=== PATIENT | female | born 1950 | race Caucasian/White ===

== ENCOUNTER 2017-01-07 11:43 | Inpatient (IN) | payer MEDICARE ==
[2017-01-07 12:41] LABS: Hematocrit 39 % (35-47); Hemoglobin 13.6 g/dl (12.0-16.0); Mean Corpuscular HGB Conc 35 g/dl (31-36); Mean Corpuscular Hemoglobin 31 pg (27-31); Mean Corpuscular Volume 89 fL (80-97); Mean Platelet Volume 9 um3 (7.4-10.4); Red Blood Count 4.41 10^6/ul (4.0-5.4); Red Cell Distribution Width 14 % (10.5-15); White Blood Count 11.6 10^3/ul (3.5-10.8)
--- NOTE | 2017-01-07 12:57 | RAD ---
HISTORY: Abdominal pain COMPARISONS: None VIEWS: 1: frontal portable view of the chest at 12:36 PM FINDINGS: LINES AND TUBES: None. CARDIOMEDIASTINAL SILHOUETTE: The cardiomediastinal silhouette is normal for portable technique. PLEURA: The costophrenic angles are sharp. No pleural abnormalities are noted. LUNG PARENCHYMA: The lungs are clear. ABDOMEN: The upper abdomen is clear. There is no subphrenic gas. BONES AND SOFT TISSUES: No bone or soft tissue abnormalities are noted. IMPRESSION: NO ACTIVE CARDIOPULMONARY DISEASE.
[2017-01-07 12:59] LABS: ALT 25 U/L (7-52); AST 27 U/L (13-39); Albumin 4.6 g/dL (3.2-5.2); Alkaline Phosphatase 71 U/L (34-104); Amylase 16 U/L (29-103); Anion Gap 8 mmol/L (2-11); BUN/Creatinine Ratio 6.5 (8-20); Blood Urea Nitrogen 6 mg/dL (6-24); C Reactive Protein 24.49 mg/L (< 5.00); CO2 Carbon Dioxide 24 mmol/L (22-32); Calcium 9.6 mg/dL (8.6-10.3); Chloride 98 mmol/L (101-111); Creatine Kinase 517 U/L (10-223); EGFR African American 78.8 (>60); EGFR Non-African American 61.3 (>60); Globulin 2.7 g/dL (2-4); Glucose 244 mg/dL (70-100); Lipase 25 U/L (11.0-82.0); Magnesium 1.9 mg/dL (1.9-2.7); Potassium 3.9 mmol/L (3.5-5.0); Sodium 130 mmol/L (133-145); Total Protein 7.3 g/dL (6.4-8.9)
[2017-01-07 13:22] LABS: Acetaminophen < 15 mcg/mL; Alcohol < 10 mg/dL (<10); Salicylate < 2.50 mg/dL (<30)
[2017-01-07] MEDS ORDERED: Iodixanol* (CONTRAST) 320 MG/ML 100 ML SDV IV ONE ×2 (13:31→13:35)
[2017-01-07 13:44] LABS: TSH (Thyroid Stimulating Horm) 2.78 mcIU/mL (0.34-5.60)
[2017-01-07 14:06] LABS: Urine Bacteria Absent (Absent); Urine Bilirubin Negative (Negative); Urine Glucose 3+(>=500 mg/dL) (Negative); Urine Nitrite Negative (Negative)
[2017-01-07 14:19] LABS: Benzodiazepine Urine Screen None Detected (None Detect)
--- NOTE | 2017-01-07 14:50 | RAD ---
INDICATION: Periumbilical pain COMPARISON: None TECHNIQUE: Axial source images were obtained from the hemidiaphragms to the symphysis pubis following administration of oral and intravenous contrast. 61 mL Visipaque 320 was utilized. Coronal and sagittal reconstructed images were acquired. Lung bases: The lung bases are clear. Liver: The liver is mildly enlarged with findings of hepatic steatosis. There are no masses. There is no ductal dilatation. Gallbladder: Cholecystectomy. Spleen: The spleen is normal in size. There are no masses. Pancreas: There is no focal pancreatic mass or ductal dilatation. Adrenal glands: There is no evidence of adrenal mass. Kidneys: The kidneys are normal in size and position. There are prompt nephrograms and there is prompt excretion bilaterally. There are no renal parenchymal masses. There is no evidence of nephrolithiasis. Adenopathy: There is no evidence of adenopathy by size criteria. Fluid collections: There are no free or localized fluid collections. Vessels:There are no significant atherosclerotic changes involving the aorta. There is no focal aneurysm. The iliac vessels are normal in caliber. The IVC appears normal. GI tract: There are proximal measuring up to 3.7 cm. The remainder the small bowel bowel is normal in caliber. These findings could be related to a localized ileus. The colon to include the appendix appears normal. Pelvic organs: The uterus and adnexa appear normal Bladder: There are no bladder masses. Abdominal and pelvic soft tissues: The extraperitoneal abdominal and pelvic soft tissues appear normal.. Osseous structures: There is degenerative disease about L4-L5 with a presumed small calcified herniated disc fragment. No additional significant bony findings. Other: There is a tiny metallic density clip artifact in the mesenteric fat of the left mid abdomen. IMPRESSION: THERE ARE SEVERAL PROXIMAL JEJUNAL LOOPS WHICH ARE OUT OF PROPORTION TO THE REMAINDER OF THE SMALL BOWEL. THIS COULD BE SECONDARY TO A LOCALIZED ILEUS. SUGGEST A FOLLOW-UP ABDOMINAL SERIES..
[2017-01-07] MEDS ORDERED: Morphine INJ* 4 MG/ML 1 ML CARPUJECT IV ONE (15:45)
[2017-01-07] MEDS ORDERED: LORazepam INJ* 2 MG/ML 1 ML VIAL IV PUSH ONE (18:34)
--- NOTE | 2017-01-07 22:42 | CONS ---
CONSULTATION REPORT: DATE OF CONSULT: 01/07/17 SERVICE REQUESTING CONSULTATION: Emergency room. PRIMARY CARE PROVIDER: HEALTHCARE PROXY: The patient does not want to identify healthcare proxy. CODE STATUS: Full. SOURCE OF INFORMATION: History was obtained from the interview with the patient and discussion with ED providers. REASON FOR CONSULT: Abdominal pain, tremor. HISTORY OF PRESENT ILLNESS: This is a 66-year-old female with past medical history of depression, bipolar disorder, hyperlipidemia, COPD, type 2 diabetes, reports 1- year history of abdominal pain that comes every day and lasts for 12 hours at a time, but is generally manageable. She reports that 6 days prior, she had sudden worsening of her abdominal pain that felt like squeezing pain that was rated as 10/10. She reports that she has been to [facility] and has since been discharged. It is not associated with nausea, vomiting, fevers, chills, melena, bright blood per rectum. She continued to have flatus and her last bowel movement was yesterday. She notes that nothing relieved the pain except for IV Ativan. She notes that she has been eating less not because of nausea, but because she has developed ticks in both her mouth that causes a squeezing sensation in her mouth as well as her arms that causes them to be held above her head and shake them. She experiences no pain in any of her arms or other muscles. She notes that she has had similar problems in the past with pain causing her to have abnormal muscle movements. She denies any recent stressors in her life other than the continued abdominal pain. PAST MEDICAL HISTORY: Includes type 2 diabetes; depression; hyperlipidemia; COPD; bipolar disorder; history of cholecystectomy, which she reports was not performed secondary to the abdominal pain. HOME MEDICATIONS: 1. Ziprasidone 80 mg daily. 2. Albuterol 2 puffs inhaled every 6 hours as needed. 3. Acetaminophen 500 mg every 8 hours as needed for pain or fever. 4. Tiotropium 2 caps inhaled daily. 5. Metformin 500 mg daily. 6. Januvia 50 mg daily. 7. Cymbalta 30 mg daily. 8. Atorvastatin 20 mg daily p.r.n. ALLERGIES: DESVENLAFAXINE, LITHIUM, and VALPROIC ACID. FAMILY HISTORY: Father with CAD. SOCIAL HISTORY: Smoke 1 pack per day for 13 years. History of alcohol use, she reports heavy in the past, but none now. Denies illicits. Lives in [place]. Has a home, is not undomiciled. REVIEW OF SYSTEMS: As per HPI. Otherwise, all other systems negative. PHYSICAL EXAM: Vitals in the emergency room: 162/80, heart rate of 100, respiratory rate of 18, she is 95% on room air, T-max 97.3. The patient is lying approximately 45 degrees in bed. She is interactive, pleasant, in no apparent distress. She does have spasms where she starts throwing her hands above the air and shaking them, to be described more thoroughly in the neurologic exam below. Her oropharynx is clear. She has moist mucous membranes. Sclerae are anicteric. She has non-elevated JVD. No supraclavicular or cervical lymphadenopathy. She has regular rate and rhythm. No murmurs, rubs, or gallops. Her lungs are clear to auscultation. Her abdomen is soft to deep palpation throughout. Positive bowel sounds. Nondistended. No rebound or guarding. Her extremities are warm and well perfused without clubbing, cyanosis, or edema. Her skin is intact without breakdown. Neurologically, she is alert and oriented x3. Her cranial nerves II through XII are intact. Her muscles have normal tone. When her arms are held above her head, she keeps them there and starts shaking. It is notable that her strength is 5/5 throughout and her sensation is intact throughout and it is notable that the shaking of her hands above her head and the jaw clenching is immediately ceased by distraction such as asking her to perform serial 7's or spelling the world backwards. Memory exam: She had 3/3 word recall at 2 minutes and would also distract her from the abnormal muscle movements as well as the jaw clenching. At no time does she have difficulty answering the questions secondary to jaw clenching, it immediately ceases. She does not favor one side with abnormal movements and is unable at any time when I lift her hands above her head to let them loose and fall, has abnormal shaking above her head immediately. PERTINENT LABORATORY DATA: Negative urine toxicology. White blood cell count is 11.6, 79% neutrophils. Sodium is 130, chloride 98, BUN 6, creatinine 0.92, glucose 244, lactic acid 1.7. Total CK is 517. CRP is 24. Beta HCG 5.9. Amylase 16, lipase 25. Urine positive for leuk esterase, squamous epithelial cells, and urine specific gravity is 1.000. PERTINENT IMAGING TESTS: CT abdomen and pelvis with contrast: There are several proximal jejunal loops which are out of proportion to the remainder of the small bowel. ASSESSMENT AND PLAN: This is a 66-year-old female presenting to the hospital with abdominal pain, has been chronic over a year, worse over the last 6 days, associated now with abnormal arm movements. 1. Abdominal pain. CT abdomen and pelvis with dilated loops of jejunum of unknown clinical significance. She has had no nausea or vomiting. She is able to tolerate food and liquids. She notes that is only limited by jaw clenching. She has had no change in her bowel movements. Her clinical exam is completely benign to very deep palpation. I suspect this is chronic etiology that may have some conversion component. I do not think she warrants inpatient hospital stay at this point for continued management of her abdominal pain. 2. Abnormal movements. Again, I believe kind of some conversion component to them. They are completely suppressed by distraction. She reports that they are only relieved by IV Ativan. There may be drug seeking behavior as well. I am not against giving her IV Ativan to suppress the movements at this time, allowing her rest and then return home. I do think she warrants a psychiatric consultation as per ED report, she showed up reporting she was suicidal. At this point, she denies any suicidal ideation. Thank you for this interesting consultation. I discussed my findings with ED provider, Dr. Joseph. [id number]/CPS #: [id number] BILL
--- NOTE | 2017-01-08 01:52 | ED ---
Sobeida Grimes Edward, scribed for Peggy Joseph MD on 01/07/17 at 1215 . Abdominal Pain/Female - HPI Summary HPI Summary: 66 y/o female presents to the ED c/o severe, intermittent pain in her ABD. The pain is described as a squeezing pain. The pt's pain is chronic but it has been worse in the past 6 days. Denies N/V, CP, SOB. Associated sx: chronic shakes for 1 year of her R arm and shakes in her face that have been worse in the past 6 days (tick), decreased appetite, sleep disturbance, SI. The pt is accompanied by her daughter in law. PCP Candice Hooks. PMHx COPD. Pt has been admitted 2 times recently at [place]. Pt has only been taking Metformin of all of her listed medications, per pt's daughter in law. Pt states she does not want to go to [facility] anymore because they make fun of her there. Pt states she doesn't want to live, if she has to live like this. Denies suicidal plan. Pt with hx bipolar, schizoaffective disorder. - History of Current Complaint Chief Complaint: [facility]entalHealth Stated Complaint: ABD PAIN Time Seen by Provider: 01/07/17 12:13 Hx Obtained From: Patient Onset/Duration: Gradual Onset, Lasting Weeks, Worse Since - 6 days ago Timing: Intermittent Episode Lasting - minutes to hours Severity Initially: Moderate Severity Currently: Severe Pain Intensity: 10 Pain Scale Used: 0-10 Numeric Location: Diffuse Radiates: No Character: Other: - squeezing Aggravating Factor(s): Nothing Alleviating Factor(s): Nothing Associated Signs and Symptoms: Positive: Other: - shakes, decreased appetite, sleep disturbance, SI. Negative: Nausea, Vomiting Allergies/Adverse Reactions: Allergies Allergy/AdvReac Type Severity Reaction Status Date / Time Desvenlafaxine [From Pristiq] Allergy Unknown Verified 01/07/17 12:02 Reaction Details [place] Allergy Tachycardia Verified 01/07/17 12:02 Valproic Acid [From Depakote] Allergy Congestion Verified 01/07/17 12:02 Home Medications: Home Medications Acetaminophen [Acetaminophen Extra Stren] 500 mg PO Q8HR PRN 01/07/17 [History Confirmed 01/07/17] Albuterol HFA INHALER* [Ventolin HFA Inhaler*] 2 puff INH Q6H PRN 01/07/17 [ History Confirmed 01/07/17] Atorvastatin* [Lipitor*] 20 mg PO DAILY 01/07/17 [History Confirmed 01/07/17] DULoxetine DR CAP* [Cymbalta CAP*] 30 mg PO DAILY 01/07/17 [History Confirmed ] Sitagliptin (NF) [Januvia (NF)] 50 mg PO DAILY 01/07/17 [History Confirmed 01/07] Tiotropium CAP.INH* [Spiriva CAP.INH*] 2 cap.inh INH DAILY 01/07/17 [History Confirmed 01/07/17] Ziprasidone CAP* [Geodon CAP*] 80 mg PO DAILY 01/07/17 [History Confirmed ] metFORMIN* [Glucophage 500 MG TAB *] 500 mg PO DAILY 01/07/17 [History Confirmed 01/07/17] PMH/Surg Hx/FS Hx/Imm Hx Previously Healthy: No Respiratory History: Reports: Hx Chronic Obstructive Pulmonary Disease (COPD) Psychiatric History: Reports: Hx Depression, Hx Bipolar Disorder, Other Psychiatric Issues/Disorders - Schizo affective Infectious Disease History: No Infectious Disease History: Denies: Traveled Outside the [place] in Last 30 Days - Family History Known Family History: Positive: Other - Depression - Social History Occupation: Disabled Alcohol Use: None Hx Substance Use: No Substance Use Type: Reports: None Hx Tobacco Use: Yes Smoking Status (MU): Heavy Every Day Tobacco Smoker Review of Systems Constitutional: Negative Eyes: Negative ENT: Negative Cardiovascular: Negative Respiratory: Negative Positive: Abdominal Pain Genitourinary: Negative Musculoskeletal: Negative Skin: Negative Neurological: Other - shakes in R arm and face Psychological: Other - decreased appetite, sleep disturbance, SI All Other Systems Reviewed And Are Negative: Yes Physical Exam - Summary Physical Exam Summary: Appearance: Chronically ill appearing, moaning in pain distress, obese Skin: Warm, color reflects adequate perfusion Head: Normal Head/Face Eyes: Conjunctiva clear ENT: Normal Neck: Supple Respiratory: Lungs clear, Normal breath sounds, no respiratory distress Cardio: RRR, No murmur, pulses normal, brisk capillary refill Abdomen: soft and mild, diffuse abdominal pain, no guarding, no rebound. No masses, no organomegaly. Bowel sounds: present Musculoskeletal: Strength Intact/ ROM intact Neuro: Alert, muscle tone normal, facial symmetry, speech normal, sensory/motor intact. Pt has repetitive up and down movement of R arm that she can stop when she holds onto her bed rail. Back and forth shaking of head that comes on in pain and can stop when I hold my hand on her forehead. Pt states these are involuntary due to pain. Pt also taps left foot in pain. Triage Information Reviewed: Yes Vital Signs On Initial Exam: Initial Vitals Temp Pulse Resp BP Pulse Ox 97.3 F 109 19 172/93 95 01/07/17 11:44 01/07/17 11:44 01/07/17 11:44 01/07/17 11:44 01/07/17 11:44 Vital Signs Reviewed: Yes - Liza Coma Scale Coma Scale Total: 15 Diagnostics - Vital Signs Vital Signs Temp Pulse Resp BP Pulse Ox 01/07/17 11:44 97.3 F 109 19 172/93 95 - Laboratory Lab Results: Lab Results 01/07/17 01/07/17 01/07/17 Range/Units 12:24 12:24 12:24 WBC 11.6 H (3.5-10.8) 10^3/ul RBC 4.41 (4.0-5.4) 10^6/ul Hgb 13.6 (12.0-16.0) g/dl Hct 39 (35-47) % MCV 89 (80-97) fL MCH 31 (27-31) pg MCHC 35 (31-36) g/dl RDW 14 (10.5-15) % Plt Count 240 (150-450) 10^3/ul MPV 9 (7.4-10.4) um3 Neut % (Auto) 79.8 (38-83) % Lymph % (Auto) 12.3 L (25-47) % [place] % (Auto) 6.1 (1-9) % Eos % (Auto) 0.1 (0-6) % Baso % (Auto) 1.7 (0-2) % Absolute Neuts (auto) 9.2 H (1.5-7.7) 10^3/ul Absolute Lymphs (auto) 1.4 (1.0-4.8) 10^3/ul Absolute Monos (auto) 0.7 (0-0.8) 10^3/ul Absolute Eos (auto) 0 (0-0.6) 10^3/ul Absolute Basos (auto) 0.2 (0-0.2) 10^3/ul Absolute Nucleated RBC 0 10^3/ul Nucleated RBC % 0 INR (Anticoag Therapy) 0.97 (0.89-1.11) Sodium 130 L (133-145) mmol/L Potassium 3.9 (3.5-5.0) mmol/L Chloride 98 L (101-111) mmol/L Carbon Dioxide 24 (22-32) mmol/L Anion Gap 8 (2-11) mmol/L BUN 6 (6-24) mg/dL Creatinine 0.92 (0.51-0.95) mg/dL Est GFR ( Amer) 78.8 (>60) Est GFR (Non-Af Amer) 61.3 (>60) BUN/Creatinine Ratio 6.5 L (8-20) Glucose 244 H (70-100) mg/dL Lactic Acid (0.5-2.0) mmol/L Calcium 9.6 (8.6-10.3) mg/dL Magnesium 1.9 (1.9-2.7) mg/dL Total Bilirubin 0.80 (0.2-1.0) mg/dL AST 27 (13-39) U/L ALT 25 (7-52) U/L Alkaline Phosphatase 71 (34-104) U/L Total Creatine Kinase 517 H (10-223) U/L Troponin I 0.00 (<0.04) ng/mL C-Reactive Protein 24.49 H (< 5.00) mg/L Total Protein 7.3 (6.4-8.9) g/dL Albumin 4.6 (3.2-5.2) g/dL Globulin 2.7 (2-4) g/dL Albumin/Globulin Ratio 1.7 (1-3) Amylase 16 L (29-103) U/L Lipase 25 (11.0-82.0) U/L TSH 2.78 (0.34-5.60) mcIU/mL Beta HCG, Quant 5.99 mIU/mL Urine Color Urine Appearance Urine pH (5-9) Ur Specific [place] (1.010-1.030) Urine Protein (Negative) Urine Ketones (Negative) Urine Blood (Negative) Urine Nitrate (Negative) Urine Bilirubin (Negative) Urine Urobilinogen (Negative) Ur Leukocyte Esterase (Negative) Urine WBC (Auto) (Absent) Urine RBC (Auto) (Absent) Ur Squamous Epith Cells (Absent) Urine Bacteria (Absent) Urine Glucose (Negative) Salicylates < 2.50 (<30) mg/dL Urine Opiates Screen (None Detect) Acetaminophen < 15 mcg/mL Ur Barbiturates Screen (None Detect) Ur Phencyclidine Scrn (None Detect) Ur Amphetamines Screen (None Detect) U Benzodiazepines Scrn (None Detect) Urine Cocaine Screen (None Detect) U Cannabinoids Screen (None Detect) Serum Alcohol < 10 (<10) mg/dL 01/07/17 01/07/17 01/07/17 Range/Units 12:24 13:46 13:46 WBC (3.5-10.8) 10^3/ul RBC (4.0-5.4) 10^6/ul Hgb (12.0-16.0) g/dl Hct (35-47) % MCV (80-97) fL MCH (27-31) pg MCHC (31-36) g/dl RDW (10.5-15) % Plt Count (150-450) 10^3/ul MPV (7.4-10.4) um3 Neut % (Auto) (38-83) % Lymph % (Auto) (25-47) % [place] % (Auto) (1-9) % Eos % (Auto) (0-6) % Baso % (Auto) (0-2) % Absolute Neuts (auto) (1.5-7.7) 10^3/ul Absolute Lymphs (auto) (1.0-4.8) 10^3/ul Absolute Monos (auto) (0-0.8) 10^3/ul Absolute Eos (auto) (0-0.6) 10^3/ul Absolute Basos (auto) (0-0.2) 10^3/ul Absolute Nucleated RBC 10^3/ul Nucleated RBC % INR (Anticoag Therapy) (0.89-1.11) Sodium (133-145) mmol/L Potassium (3.5-5.0) mmol/L Chloride (101-111) mmol/L Carbon Dioxide (22-32) mmol/L Anion Gap (2-11) mmol/L BUN (6-24) mg/dL Creatinine (0.51-0.95) mg/dL Est GFR ( Amer) (>60) Est GFR (Non-Af Amer) (>60) BUN/Creatinine Ratio (8-20) Glucose (70-100) mg/dL Lactic Acid 1.7 (0.5-2.0) mmol/L Calcium (8.6-10.3) mg/dL Magnesium (1.9-2.7) mg/dL Total Bilirubin (0.2-1.0) mg/dL AST (13-39) U/L ALT (7-52) U/L Alkaline Phosphatase (34-104) U/L Total Creatine Kinase (10-223) U/L Troponin I (<0.04) ng/mL C-Reactive Protein (< 5.00) mg/L Total Protein (6.4-8.9) g/dL Albumin (3.2-5.2) g/dL Globulin (2-4) g/dL Albumin/Globulin Ratio (1-3) Amylase (29-103) U/L Lipase (11.0-82.0) U/L TSH (0.34-5.60) mcIU/mL Beta HCG, Quant mIU/mL Urine Color Yellow Urine Appearance Clear Urine pH 6.0 (5-9) Ur Specific [place] 1.005 L (1.010-1.030) Urine Protein Negative (Negative) Urine Ketones Negative (Negative) Urine Blood Negative (Negative) Urine Nitrate Negative (Negative) Urine Bilirubin Negative (Negative) Urine Urobilinogen Negative (Negative) Ur Leukocyte Esterase Trace H (Negative) Urine WBC (Auto) Trace(0-5/hpf) (Absent) Urine RBC (Auto) Trace(0-2/hpf) (Absent) Ur Squamous Epith Cells Present H (Absent) Urine Bacteria Absent (Absent) Urine Glucose 3+(>=500 mg/dl) H (Negative) Salicylates (<30) mg/dL Urine Opiates Screen None detected (None Detect) Acetaminophen mcg/mL Ur Barbiturates Screen None detected (None Detect) Ur Phencyclidine Scrn None detected (None Detect) Ur Amphetamines Screen None detected (None Detect) U Benzodiazepines Scrn None detected (None Detect) Urine Cocaine Screen None detected (None Detect) U Cannabinoids Screen None detected (None Detect) Serum Alcohol (<10) mg/dL 01/07/17 Range/Units 17:02 WBC (3.5-10.8) 10^3/ul RBC (4.0-5.4) 10^6/ul Hgb (12.0-16.0) g/dl Hct (35-47) % MCV (80-97) fL MCH (27-31) pg MCHC (31-36) g/dl RDW (10.5-15) % Plt Count (150-450) 10^3/ul MPV (7.4-10.4) um3 Neut % (Auto) (38-83) % Lymph % (Auto) (25-47) % [place] % (Auto) (1-9) % Eos % (Auto) (0-6) % Baso % (Auto) (0-2) % Absolute Neuts (auto) (1.5-7.7) 10^3/ul Absolute Lymphs (auto) (1.0-4.8) 10^3/ul Absolute Monos (auto) (0-0.8) 10^3/ul Absolute Eos (auto) (0-0.6) 10^3/ul Absolute Basos (auto) (0-0.2) 10^3/ul Absolute Nucleated RBC 10^3/ul Nucleated RBC % INR (Anticoag Therapy) (0.89-1.11) Sodium (133-145) mmol/L Potassium (3.5-5.0) mmol/L Chloride (101-111) mmol/L Carbon Dioxide (22-32) mmol/L Anion Gap (2-11) mmol/L BUN (6-24) mg/dL Creatinine (0.51-0.95) mg/dL Est GFR ( Amer) (>60) Est GFR (Non-Af Amer) (>60) BUN/Creatinine Ratio (8-20) Glucose (70-100) mg/dL Lactic Acid 1.3 (0.5-2.0) mmol/L Calcium (8.6-10.3) mg/dL Magnesium (1.9-2.7) mg/dL Total Bilirubin (0.2-1.0) mg/dL AST (13-39) U/L ALT (7-52) U/L Alkaline Phosphatase (34-104) U/L Total Creatine Kinase (10-223) U/L Troponin I (<0.04) ng/mL C-Reactive Protein (< 5.00) mg/L Total Protein (6.4-8.9) g/dL Albumin (3.2-5.2) g/dL Globulin (2-4) g/dL Albumin/Globulin Ratio (1-3) Amylase (29-103) U/L Lipase (11.0-82.0) U/L TSH (0.34-5.60) mcIU/mL Beta HCG, Quant mIU/mL Urine Color Urine Appearance Urine pH (5-9) Ur Specific [place] (1.010-1.030) Urine Protein (Negative) Urine Ketones (Negative) Urine Blood (Negative) Urine Nitrate (Negative) Urine Bilirubin (Negative) Urine Urobilinogen (Negative) Ur Leukocyte Esterase (Negative) Urine WBC (Auto) (Absent) Urine RBC (Auto) (Absent) Ur Squamous Epith Cells (Absent) Urine Bacteria (Absent) Urine Glucose (Negative) Salicylates (<30) mg/dL Urine Opiates Screen (None Detect) Acetaminophen mcg/mL Ur Barbiturates Screen (None Detect) Ur Phencyclidine Scrn (None Detect) Ur Amphetamines Screen (None Detect) U Benzodiazepines Scrn (None Detect) Urine Cocaine Screen (None Detect) U Cannabinoids Screen (None Detect) Serum Alcohol (<10) mg/dL Result Diagrams: 01/07/17 12:24 01/07/17 12:24 Lab Statement: Any lab studies that have been ordered have been reviewed, and results considered in the medical decision making process. - Radiology CXR Xray Interpretation: No Acute Changes - NO ACTIVE CARDIOPULMONARY DISEASE Radiology Interpretation Completed By: Radiologist - CT ABD/PEL CT CT Interpretation: Positive (See Comments) - THERE ARE SEVERAL PROXIMAL JEJUNAL LOOPS WHICH ARE OUT OF PROPORTION TO THE REMAINDER OF THE SMALL BOWEL. THIS COULD BE SECONDARY TO A LOCALIZED ILEUS. SUGGEST A FOLLOW-UP ABDOMINAL SERIES.. CT Interpretation Completed By: Radiologist - Additional Comments Diagnostic Additional Comments: EKG - 12:26 - SR @ 102 BPM. NORMAL AV, IV and QTC. NORMAL AXIS. NO PRIOR EKG TO COMPARE Abdominal Pain Fem Course/Dx - Course Course Of Treatment: 66 y/o female presents to the ED c/o severe, intermittent pain in her ABD. The pain is described as a squeezing pain. The pt's pain is chronic but it has been worse in the past 6 days. Denies N/V, CP, SOB. Associated sx: chronic shakes for 1 year of her R arm and shakes in her face that have been worse in the past 6 days (tick), decreased appetite, sleep disturbance, SI. The pt is accompanied by her daughter in law. PCP Candice Hooks. PMHx COPD. Pt has been admitted 2 times recently at [facility]. Pt has only been taking Metformin, per pt's daughter in law. CXR SHOWS NO ACTIVE CARDIOPULMONARY DISEASE. EKG - 12:26 - SR @ 102 BPM. NORMAL AV, IV and QTC. NORMAL AXIS. NO PRIOR EKG TO COMPARE. ABD/PEL CT SHOWS THERE ARE SEVERAL PROXIMAL JEJUNAL LOOPS WHICH ARE OUT OF PROPORTION TO THE REMAINDER OF THE SMALL BOWEL. THIS COULD BE SECONDARY TO A LOCALIZED ILEUS. SUGGEST A FOLLOW-UP ABDOMINAL SERIES. Spoke with Dr. Irizarry at 16:06. Pt is medically cleared for MHU evaluation at 16:55. Pt will be signed out to Dr. De Leon pending U eval. - Diagnoses Differential Diagnosis: Positive: Bowel Obstruction, Constipation, Diverticulitis, Irritable Bowel Syndrome, Other - ileus Provider Diagnoses: Abdominal pain, Suicidal ideation, Bipolar disorder, Ileus - Provider Notifications Discussed Care Of Patient With: Jt Irizarry Time Discussed With Above Provider: 15:45 Instructed by Provider To: MD Will See In ED Discharge - Discharge Plan Condition: Stable Disposition: OTHER Discharge Disposition Comment: Pt will be signed out to Dr. De Leon pending U eval 01/08/17 0130am Referrals: Non Staff,Doctor [Primary Care Provider] - The documentation as recorded by the Sobeida hair Edward accurately reflects the service I personally performed and the decisions made by , Peggy Joseph MD.
[2017-01-08] MEDS: ARIPiprazole TAB* 2 MG PO ONE (10:26)
[2017-01-08] MEDS ORDERED: Albuterol HFA INHALER* 8 gm MDI INH PRN (12:03)
[2017-01-08] MEDS ORDERED: Senna TAB PO ONE ×2 (12:04→12:05)
[2017-01-08] MEDS: metFORMIN* 500 MG TAB PO SCH ×2 (14:45→21:01)
--- NOTE | 2017-01-08 15:15 | PN ---
ED Flex Patient Progress Note Subjective: This is a 66 year-old F who is pending admission to [facility] secondary to SI . Pt reports jaw spasms at time and not sure why. Has not had breakfast yet and has diabetes. Has not had medications for diabetes - will recheck glucose before medications. Also COPD - uses albuterol PRN but does not feel she needs at this time. Objective: Vitals: Most recent vital signs documented below. General NAD, Alert and oriented x3. Heart: S1/S2, RRR Lungs: CTA, BREATHING EASILY, NO rales, rhonchi, wheezing AB: + bs, soft, NTTP Assessment: 1) SI 2) DM 3) COPD Plan: 1) Pending psychiatric admit. Will follow up daily __until admitted___. 2) glucose checks and metformin/januvia ordered 3) Albuterol ordered PRN Vital Signs Temp Pulse Resp BP Pulse Ox 97.6 F 78 16 132/73 93 01/08/17 10:00 01/08/17 10:00 01/08/17 10:00 01/08/17 10:00 01/08/17 10:00 Lab Results - Entire Visit 01/08/17 01/07/17 01/07/17 14:24 17:02 13:46 WBC RBC Hgb Hct MCV MCH MCHC RDW Plt Count MPV Neut % (Auto) Lymph % (Auto) [place] % (Auto) Eos % (Auto) Baso % (Auto) Absolute Neuts (auto) Absolute Lymphs (auto) Absolute Monos (auto) Absolute Eos (auto) Absolute Basos (auto) Absolute Nucleated RBC Nucleated RBC % INR (Anticoag Therapy) Sodium Potassium Chloride Carbon Dioxide Anion Gap BUN Creatinine Est GFR ( Amer) Est GFR (Non-Af Amer) BUN/Creatinine Ratio Glucose POC Glucose (mg/dL) 174 H Lactic Acid 1.3 Calcium Magnesium Total Bilirubin AST ALT Alkaline Phosphatase Total Creatine Kinase Troponin I C-Reactive Protein Total Protein Albumin Globulin Albumin/Globulin Ratio Amylase Lipase TSH Beta HCG, Quant Urine Color Yellow Urine Appearance Clear Urine pH 6.0 Ur Specific Sunset 1.005 L Urine Protein Negative Urine Ketones Negative Urine Blood Negative Urine Nitrate Negative Urine Bilirubin Negative Urine Urobilinogen Negative Ur Leukocyte Esterase Trace H Urine WBC (Auto) Trace(0-5/hpf) Urine RBC (Auto) Trace(0-2/hpf) Ur Squamous Epith Cells Present H Urine Bacteria Absent Urine Glucose 3+(>=500 mg/dl) H Salicylates Urine Opiates Screen Acetaminophen Ur Barbiturates Screen Ur Phencyclidine Scrn Ur Amphetamines Screen U Benzodiazepines Scrn Urine Cocaine Screen U Cannabinoids Screen Serum Alcohol 01/07/17 01/07/17 01/07/17 13:46 12:24 12:24 WBC RBC Hgb Hct MCV MCH MCHC RDW Plt Count MPV Neut % (Auto) Lymph % (Auto) [place] % (Auto) Eos % (Auto) Baso % (Auto) Absolute Neuts (auto) Absolute Lymphs (auto) Absolute Monos (auto) Absolute Eos (auto) Absolute Basos (auto) Absolute Nucleated RBC Nucleated RBC % INR (Anticoag Therapy) 0.97 Sodium Potassium Chloride Carbon Dioxide Anion Gap BUN Creatinine Est GFR ( Amer) Est GFR (Non-Af Amer) BUN/Creatinine Ratio Glucose POC Glucose (mg/dL) Lactic Acid 1.7 Calcium Magnesium Total Bilirubin AST ALT Alkaline Phosphatase Total Creatine Kinase Troponin I C-Reactive Protein Total Protein Albumin Globulin Albumin/Globulin Ratio Amylase Lipase TSH Beta HCG, Quant Urine Color Urine Appearance Urine pH Ur Specific Sunset Urine Protein Urine Ketones Urine Blood Urine Nitrate Urine Bilirubin Urine Urobilinogen Ur Leukocyte Esterase Urine WBC (Auto) Urine RBC (Auto) Ur Squamous Epith Cells Urine Bacteria Urine Glucose Salicylates Urine Opiates Screen None detected Acetaminophen Ur Barbiturates Screen None detected Ur Phencyclidine Scrn None detected Ur Amphetamines Screen None detected U Benzodiazepines Scrn None detected Urine Cocaine Screen None detected U Cannabinoids Screen None detected Serum Alcohol 01/07/17 01/07/17 12:24 12:24 WBC 11.6 H RBC 4.41 Hgb 13.6 Hct 39 MCV 89 MCH 31 MCHC 35 RDW 14 Plt Count 240 MPV 9 Neut % (Auto) 79.8 Lymph % (Auto) 12.3 L [place] % (Auto) 6.1 Eos % (Auto) 0.1 Baso % (Auto) 1.7 Absolute Neuts (auto) 9.2 H Absolute Lymphs (auto) 1.4 Absolute Monos (auto) 0.7 Absolute Eos (auto) 0 Absolute Basos (auto) 0.2 Absolute Nucleated RBC 0 Nucleated RBC % 0 INR (Anticoag Therapy) Sodium 130 L Potassium 3.9 Chloride 98 L Carbon Dioxide 24 Anion Gap 8 BUN 6 Creatinine 0.92 Est GFR ( Amer) 78.8 Est GFR (Non-Af Amer) 61.3 BUN/Creatinine Ratio 6.5 L Glucose 244 H POC Glucose (mg/dL) Lactic Acid Calcium 9.6 Magnesium 1.9 Total Bilirubin 0.80 AST 27 ALT 25 Alkaline Phosphatase 71 Total Creatine Kinase 517 H Troponin I 0.00 C-Reactive Protein 24.49 H Total Protein 7.3 Albumin 4.6 Globulin 2.7 Albumin/Globulin Ratio 1.7 Amylase 16 L Lipase 25 TSH 2.78 Beta HCG, Quant 5.99 Urine Color Urine Appearance Urine pH Ur Specific Sunset Urine Protein Urine Ketones Urine Blood Urine Nitrate Urine Bilirubin Urine Urobilinogen Ur Leukocyte Esterase Urine WBC (Auto) Urine RBC (Auto) Ur Squamous Epith Cells Urine Bacteria Urine Glucose Salicylates < 2.50 Urine Opiates Screen Acetaminophen < 15 Ur Barbiturates Screen Ur Phencyclidine Scrn Ur Amphetamines Screen U Benzodiazepines Scrn Urine Cocaine Screen U Cannabinoids Screen Serum Alcohol < 10
[2017-01-08] MEDS ORDERED: Nicotine GUM* 2 MG PO PRN (15:51)
[2017-01-08] MEDS ORDERED: Al Hydrox/Mg Hydrox/Simet LIQ* 30 ML UDC PO PRN (15:51)
[2017-01-08] MEDS ORDERED: Acetaminophen TAB* 325 MG PO PRN (15:51)
[2017-01-09] MEDS: Vitamin THERAPEUTIC TAB PO SCH (10:01)
[2017-01-09] MEDS: metFORMIN* 500 MG TAB PO SCH ×2 (10:02→20:43)
[2017-01-09] MEDS: Nicotine PATCH 21 MG/24 HR* PATCH TRANSDERM SCH (10:03)
[2017-01-09] MEDS: ARIPiprazole TAB* 2 MG PO ONE (10:03)
[2017-01-09] MEDS ORDERED: Sitagliptin (NF) 50 MG TAB PO ONE (12:06)
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
[2017-01-09] MEDS: Ziprasidone CAP* 80 MG PO SCH (20:44)
[2017-01-09] MEDS: Pregabalin CAP(*) 50 MG PO SCH (20:44)
[2017-01-09] MEDS: Nicotine Patch Removal NOTE PATCH OFF SCH (20:44)
[2017-01-09] MEDS ORDERED: Gabapentin CAP(*) 100 MG PO SCH (21:00)
[2017-01-10] MEDS: DULoxetine DR CAP* 30 MG CAP.DR PO SCH (10:00)
[2017-01-10] MEDS: metFORMIN* 500 MG TAB PO SCH ×2 (10:00→21:14)
[2017-01-10] MEDS: Nicotine PATCH 21 MG/24 HR* PATCH TRANSDERM SCH (10:00)
[2017-01-10] MEDS: Pregabalin CAP(*) 50 MG PO SCH ×2 (10:00→21:14)
[2017-01-10] MEDS: Vitamin THERAPEUTIC TAB PO SCH (10:00)
--- NOTE | 2017-01-10 12:17 | PN ---
Subjective - Subjective Service Type: 91959 Hosp care 15 min low complexity Subjective: The patient remains in bed. Once again she is quite still until she is alerted to my presence and she immediately starts flapping her right upper extremity, as her left one is under the covers and tucked underneath her. She continues to express 10/10 abdominal pain but is calm and pleasant with this clinician. Staff reports indicate that she has been refusing participation in groups but is eating all meals. Patient reports that she does not have a glucometer at home. Receives primary care from a Dr. Leigh Ann Villagomez at [facility] in [place], [place]. Patient tolerating the introduction of pregabalin so far. Still expressing hopelessness about her abdominal pain. Objective - Appearance Appearance: Obese Dysmorphic Features: No Hygiene: Normal Grooming: Fairly Well Kept - Behavior Psychomotor Activities: Abnormal-Decreased Exhibits Abnormal Movement: No - Attitude and Relatedness Attitude and Relatedness: Cooperative Eye Contact: Fair - Speech Quality: Unpressured Latencies: Normal Quantity: Appropriate - Mood Patient's Decription of Mood: "Upset" - Affect Observed Affect: Constricted Affect Consistent with: Dysphoria - Thought Process Patient's Thought Process: Coherent Thought Content: No Passive Wish, No Suicidal Planning, No Homicidal Ideation, No Paranoid Ideation - Sensorium Experiencing Hallucinations: No, Sensorium is Clear Type of Hallucinations: Visual: No, Auditory: No, Command: No - Level of Consciousness Level of Consciousness: Alert Orientation: Yes Intact, Yes Orientated to Time, Yes Orientated to Place, Yes Orientated to Person - Impulse Control Impulse Control: Tenuous - Insight and Judgement Insight and Judgement: Fair - Group Participation Particating in Group Activities: No - Medication Management Medication Management Adherence: Yes Assessment - Assessment Merits Inpatient Hospitalization: Diagnosis Determination, To Initiate Treatment , For Ongoing Evaluation Inpatient DSM-IV Dx: Conversion DO Clinical Impression: 66 y.o. , white female with a history of bipolar disorder and multiple previous psychiatric admissions in [facility] brought to the ER by family due to intractable abdominal pain with no discernable organic cause and associated passive SI. Plan - Plan Treatment Plan: Name: LYNDSEY HO Birthdate: 1950 [id number] Continued Medication Management: Start Medication Medications: Current Medications Acetaminophen (Tylenol Tab*) 650 mg PO Q4H PRN PRN Reason: for pain; or Temp >101 F Al Hydrox/Mg Hydrox/Simethicone (Maalox Plus*) 30 ml PO Q4H PRN PRN Reason: INDIGESTION Albuterol (Ventolin Hfa Inhaler*) 2 puff INH Q6H PRN PRN Reason: WHEEZING Duloxetine HCl (Cymbalta Cap*) 30 mg PO DAILY [facility] Last Admin: 01/10/17 10:00 Dose: 30 mg Metformin HCl (Glucophage*) 500 mg PO BID [facility] Last Admin: 01/10/17 10:00 Dose: 500 mg Multivitamins (Theragran Tab*) 1 tab PO DAILY [facility] Last Admin: 01/10/17 10:00 Dose: 1 tab Nicotine (Nicotine Patch 21 Mg/24 Hr*) 1 patch TRANSDERM DAILY@0800 [facility] Last Admin: 01/10/17 10:00 Dose: Not Given Nicotine Polacrilex (Nicotine Gum*) 2 mg PO Q2H PRN PRN Reason: CRAVING Pharmacy Profile Note (Nicotine Patch Removal Note*) 1 note PATCH OFF 2100 [facility] Last Admin: 01/09/17 20:44 Dose: Not Given Pregabalin (Lyrica Cap(*)) 50 mg PO BID [facility] Last Admin: 01/10/17 10:00 Dose: 50 mg Ziprasidone (Geodon Cap*) 80 mg PO BEDTIME [facility] Last Admin: 01/09/17 20:44 Dose: 80 mg - Discharge Plan Discharge Plan: Inpatient Hospitalization Lab Results - Lab Results Lab Results: 01/09/17 01/10/17 01/10/17 17:08 07:45 11:49 POC Glucose (mg/dL) 133 H 163 H 294 H
[2017-01-10] MEDS: Ziprasidone CAP* 80 MG PO SCH (21:14)
[2017-01-10] MEDS: Nicotine Patch Removal NOTE PATCH OFF SCH (21:15)
[2017-01-11] MEDS: metFORMIN* 500 MG TAB PO SCH ×2 (09:17→20:45)
[2017-01-11] MEDS: Pregabalin CAP(*) 50 MG PO SCH (09:17)
[2017-01-11] MEDS: DULoxetine DR CAP* 30 MG CAP.DR PO SCH (09:17)
[2017-01-11] MEDS: Vitamin THERAPEUTIC TAB PO SCH (09:17)
[2017-01-11] MEDS: Nicotine PATCH 21 MG/24 HR* PATCH TRANSDERM SCH (09:18)
[2017-01-11 09:20] LABS: HDL Cholesterol 41.6 mg/dL
--- NOTE | 2017-01-11 17:37 | PN ---
Subjective - Subjective Service Type: 37417 Hosp care 15 min low complexity Subjective: The patient still complains of abdominal pain and shaking spells. She is out of her room, visiting with her son's fiance, Sharon Pan, who is quite supportive. The patient indicates that she's tolerating pregabalin quite well but hasn't gotten much benefit yet. She is not active in groups or milieu activities but is eating appropriately. She endorses continued passive SI. Objective - Appearance Appearance: Obese Dysmorphic Features: No Hygiene: Normal Grooming: Fairly Well Kept - Behavior Psychomotor Activities: Normal Exhibits Abnormal Movement: Yes - Attitude and Relatedness Attitude and Relatedness: Needy Eye Contact: Fair - Speech Quality: Unpressured Latencies: Normal Quantity: Appropriate - Mood Patient's Decription of Mood: "Terrible" - Affect Observed Affect: Fair Affect Consistent with: Euthymia - Thought Process Patient's Thought Process: Coherent Thought Content: Yes Passive Wish, No Suicidal Planning, No Homicidal Ideation, No Paranoid Ideation - Sensorium Experiencing Hallucinations: No, Sensorium is Clear Type of Hallucinations: Visual: No, Auditory: No, Command: No - Level of Consciousness Level of Consciousness: Alert Orientation: Yes Intact, Yes Orientated to Time, Yes Orientated to Place, Yes Orientated to Person - Impulse Control Impulse Control: Tenuous - Insight and Judgement Insight and Judgement: Fair - Group Participation Particating in Group Activities: No - Medication Management Medication Management Adherence: Yes Assessment - Assessment Merits Inpatient Hospitalization: For Immediate Safety, For Stabilization Inpatient DSM-IV Dx: Conversion DO Clinical Impression: 66 y.o. , white female with a history of bipolar disorder and multiple previous psychiatric admissions in [facility] brought to the ER by family due to intractable abdominal pain with no discernable organic cause and associated passive SI. Plan - Plan Treatment Plan: Name: LYNDSEY HO Birthdate: 1950 [id number] We have started the patient on pregabalin, for suspected neuropathic pain, but also highly suspect conversion disorder versus factitious disorder. The patient is also receiving her outpatient regimen of ziprasidone and duloxetine. No improvement yet. Continue inpatient treatment. Continued Medication Management: Different Medication Medications: Current Medications Acetaminophen (Tylenol Tab*) 650 mg PO Q4H PRN PRN Reason: for pain; or Temp >101 F Al Hydrox/Mg Hydrox/Simethicone (Maalox Plus*) 30 ml PO Q4H PRN PRN Reason: INDIGESTION Albuterol (Ventolin Hfa Inhaler*) 2 puff INH Q6H PRN PRN Reason: WHEEZING Duloxetine HCl (Cymbalta Cap*) 30 mg PO DAILY [facility] Last Admin: 01/11/17 09:17 Dose: 30 mg Metformin HCl (Glucophage*) 500 mg PO BID [facility] Last Admin: 01/11/17 09:17 Dose: 500 mg Multivitamins (Theragran Tab*) 1 tab PO DAILY [facility] Last Admin: 01/11/17 09:17 Dose: 1 tab Nicotine Polacrilex (Nicotine Gum*) 2 mg PO Q2H PRN PRN Reason: CRAVING Pregabalin (Lyrica Cap(*)) 75 mg PO BID [facility] Ziprasidone (Geodon Cap*) 80 mg PO BEDTIME [facility] Last Admin: 01/10/17 21:14 Dose: 80 mg - Discharge Plan Discharge Plan: Inpatient Hospitalization Lab Results - Lab Results Lab Results: 01/09/17 01/10/17 01/10/17 17:08 07:45 11:49 POC Glucose (mg/dL) 133 H 163 H 294 H Hemoglobin A1c Triglycerides Cholesterol LDL Cholesterol HDL Cholesterol 01/10/17 01/10/17 01/11/17 17:08 21:14 06:04 POC Glucose (mg/dL) 112 H 188 H Hemoglobin A1c Triglycerides 176 Cholesterol 158 LDL Cholesterol 81 HDL Cholesterol 41.6 01/11/17 01/11/17 06:04 07:31 POC Glucose (mg/dL) 155 H Hemoglobin A1c 8.0 H Triglycerides Cholesterol LDL Cholesterol HDL Cholesterol
[2017-01-11] MEDS: Pregabalin CAP(*) 25 MG PO SCH (20:45)
[2017-01-11] MEDS: Ziprasidone CAP* 80 MG PO SCH (20:45)
[2017-01-12] MEDS: Vitamin THERAPEUTIC TAB PO SCH (09:54)
[2017-01-12] MEDS: DULoxetine DR CAP* 30 MG CAP.DR PO SCH (09:55)
[2017-01-12] MEDS: metFORMIN* 500 MG TAB PO SCH ×2 (09:55→20:28)
[2017-01-12] MEDS: Pregabalin CAP(*) 25 MG PO SCH ×2 (09:55→20:27)
[2017-01-12] MEDS: Ziprasidone CAP* 80 MG PO SCH (20:27)
[2017-01-13] MEDS: Pregabalin CAP(*) 25 MG PO SCH ×2 (09:12→20:44)
[2017-01-13] MEDS: metFORMIN* 500 MG TAB PO SCH ×2 (09:13→20:43)
[2017-01-13] MEDS: DULoxetine DR CAP* 30 MG CAP.DR PO SCH (09:13)
[2017-01-13] MEDS: Vitamin THERAPEUTIC TAB PO SCH (09:13)
--- NOTE | 2017-01-13 18:09 | PN ---
Subjective - Subjective Service Type: 99827 Hosp care 15 min low complexity Subjective: Ms. Ho was in bed holding he abdomen and making sounds and physical gestures indicating severe abdominal pain and told me and staffs that there is nothing anyone can do about this. Also reports that her current meds weren't helping. She just lays in bed repeating the same almost all long and never complains to Nursing staffs or asks for help raising doubts. Objective - Appearance Appearance: Obese Dysmorphic Features: No Hygiene: Normal Grooming: Disheveled - Behavior Psychomotor Activities: Abnormal-Increased Exhibits Abnormal Movement: No - Attitude and Relatedness Attitude and Relatedness: Needy Eye Contact: Poor - Speech Quality: Unpressured Latencies: Normal Quantity: Terse - Mood Patient's Decription of Mood: "Terrible" - Affect Observed Affect: Depressed Affect Consistent with: Dysphoria - Thought Process Patient's Thought Process: Coherent, Circumstantial Thought Content: No Passive Wish, No Suicidal Planning, No Homicidal Ideation, No Paranoid Ideation - Sensorium Experiencing Hallucinations: No, Sensorium is Clear Type of Hallucinations: Visual: No, Auditory: No, Command: No - Level of Consciousness Level of Consciousness: Alert Orientation: Yes Intact, Yes Orientated to Time, Yes Orientated to Place, Yes Orientated to Person - Impulse Control Impulse Control: Impaired - Insight and Judgement Insight and Judgement: Impaired - Group Participation Particating in Group Activities: No - Medication Management Medication Management Adherence: Yes Assessment - Assessment Merits Inpatient Hospitalization: For Stabilization, Diagnosis Determination, For Ongoing Evaluation Inpatient DSM-IV Dx: Conversion DO Clinical Impression: No change from baseline yet. Plan - Plan Treatment Plan: Name: LYNDSEY HO Birthdate: 1950 [id number] Continued Medication Management: Continue Outpt Medication Medications: Current Medications Acetaminophen (Tylenol Tab*) 650 mg PO Q4H PRN PRN Reason: for pain; or Temp >101 F Al Hydrox/Mg Hydrox/Simethicone (Maalox Plus*) 30 ml PO Q4H PRN PRN Reason: INDIGESTION Albuterol (Ventolin Hfa Inhaler*) 2 puff INH Q6H PRN PRN Reason: WHEEZING Duloxetine HCl (Cymbalta Cap*) 30 mg PO DAILY [facility] Last Admin: 01/13/17 09:13 Dose: 30 mg Metformin HCl (Glucophage*) 500 mg PO BID [facility] Last Admin: 01/13/17 09:13 Dose: 500 mg Multivitamins (Theragran Tab*) 1 tab PO DAILY [facility] Last Admin: 01/13/17 09:13 Dose: 1 tab Nicotine Polacrilex (Nicotine Gum*) 2 mg PO Q2H PRN PRN Reason: CRAVING Pregabalin (Lyrica Cap(*)) 75 mg PO BID [facility] Last Admin: 01/13/17 09:12 Dose: 75 mg Ziprasidone (Geodon Cap*) 80 mg PO BEDTIME [facility] Last Admin: 01/12/17 20:27 Dose: 80 mg - Discharge Plan Discharge Plan: Consider Longer Term Ri - [facility].
[2017-01-13] MEDS ORDERED: Docusate CAP* 100 MG PO PRN (19:09)
[2017-01-13] MEDS: Ziprasidone CAP* 80 MG PO SCH (20:43)
[2017-01-14] MEDS: Vitamin THERAPEUTIC TAB PO SCH (08:27)
[2017-01-14] MEDS: metFORMIN* 500 MG TAB PO SCH ×2 (08:27→20:09)
[2017-01-14] MEDS: DULoxetine DR CAP* 30 MG CAP.DR PO SCH (08:27)
[2017-01-14] MEDS: Pregabalin CAP(*) 25 MG PO SCH (08:29)
--- NOTE | 2017-01-14 13:16 | PN ---
Subjective - Subjective Service Type: 88016 Hosp care 15 min low complexity Subjective: Fariba is seen up and out of her room. She is eating 100% of meals and going to groups; appears more social with peers. She tells me that she is not suicidal and would like to be discharged home today. This is despite the fact that she continues to endorse abdominal pain and tremulousness that has not responded to pregabalin. "I stopped taking the Lyrica because it was scrunching up my face like this" she states, making a facial grimace. Her family indicated that benzodiazepine therapy was helpful in the past but the patient is declining clonazepam, stating "No, that stuff is addictive." She contracts for safety while requesting d/c and is willing to follow up with her therapist and NPP at [facility]. Attempts to contact her son, Hemal, and his fiancee, Sharon, are unsuccessful. Objective - Appearance Appearance: Obese Dysmorphic Features: No Hygiene: Normal Grooming: Fairly Well Kept - Behavior Psychomotor Activities: Normal Exhibits Abnormal Movement: No - Attitude and Relatedness Attitude and Relatedness: Cooperative Eye Contact: Fair - Speech Quality: Unpressured Latencies: Normal Quantity: Appropriate - Mood Patient's Decription of Mood: "Okay" - Affect Observed Affect: Fair Affect Consistent with: Euthymia - Thought Process Patient's Thought Process: Coherent Thought Content: No Passive Wish, No Suicidal Planning, No Homicidal Ideation, No Paranoid Ideation - Sensorium Experiencing Hallucinations: No, Sensorium is Clear Type of Hallucinations: Visual: No, Auditory: No, Command: No - Level of Consciousness Level of Consciousness: Alert Orientation: Yes Intact, Yes Orientated to Time, Yes Orientated to Place, Yes Orientated to Person - Impulse Control Impulse Control: Tenuous - Insight and Judgement Insight and Judgement: Fair - Group Participation Particating in Group Activities: Yes - Medication Management Medication Management Adherence: Yes Assessment - Assessment Merits Inpatient Hospitalization: Consolidate Improvements, Pending Safe DC Plan Inpatient DSM-IV Dx: Conversion DO Clinical Impression: 66 y.o. , white female with a history of bipolar disorder and multiple previous psychiatric admissions in [facility] brought to the ER by family due to intractable abdominal pain with no discernable organic cause and associated passive SI. Plan - Plan Treatment Plan: Name: FARIBA HO Birthdate: 1950 [id number] The patient is not responding to pregabalin therapy so we will discontinue this in favor of a trial of oral lorazepam. She is also receiving her outpatient regimen of ziprasidone and duloxetine. Despite continued complaints of pain, which are somewhat contradicted by her observed behavior today, which is social and active, she indicates her preference to leave the hospital today. I await contact and safety planning with the family. Continue inpatient treatment. Continued Medication Management: Different Medication Medications: Current Medications Acetaminophen (Tylenol Tab*) 650 mg PO Q4H PRN PRN Reason: for pain; or Temp >101 F Al Hydrox/Mg Hydrox/Simethicone (Maalox Plus*) 30 ml PO Q4H PRN PRN Reason: INDIGESTION Albuterol (Ventolin Hfa Inhaler*) 2 puff INH Q6H PRN PRN Reason: WHEEZING Docusate Sodium (Colace Cap*) 100 mg PO BID PRN PRN Reason: CONSTIPATION Last Admin: 01/13/17 20:43 Dose: 100 mg Duloxetine HCl (Cymbalta Cap*) 30 mg PO DAILY [facility] Last Admin: 01/14/17 08:27 Dose: 30 mg Lorazepam (Ativan Tab(*)) 1 mg PO BID [facility] Metformin HCl (Glucophage*) 500 mg PO BID [facility] Last Admin: 01/14/17 08:27 Dose: 500 mg Multivitamins (Theragran Tab*) 1 tab PO DAILY [facility] Last Admin: 01/14/17 08:27 Dose: 1 tab Nicotine Polacrilex (Nicotine Gum*) 2 mg PO Q2H PRN PRN Reason: CRAVING Ziprasidone (Geodon Cap*) 80 mg PO BEDTIME [facility] Last Admin: 01/13/17 20:43 Dose: 80 mg - Discharge Plan Discharge Plan: Outpatient Follow Up Outpatient Program: [facility]
[2017-01-14] MEDS: Ziprasidone CAP* 80 MG PO SCH (20:09)
[2017-01-14] MEDS: LORazepam TAB(*) 1 MG PO SCH (20:27)
[2017-01-15] MEDS: metFORMIN* 500 MG TAB PO SCH ×2 (09:18→20:10)
[2017-01-15] MEDS: DULoxetine DR CAP* 30 MG CAP.DR PO SCH (09:18)
[2017-01-15] MEDS: Vitamin THERAPEUTIC TAB PO SCH (09:18)
[2017-01-15] MEDS: LORazepam TAB(*) 1 MG PO SCH ×2 (09:18→20:10)
--- NOTE | 2017-01-15 13:09 | PN ---
Subjective - Subjective Service Type: 99574 Hosp care 15 min low complexity Subjective: Fariba remains in good spirits and continues to deny SI. She is still having mild abdominal pain but reports an improvement in this compared to admission. I met with her son, Hemal, and his fiancee, Sharon, yesterday on the unit. They are supportive of discharge but requested that we delay this until Saturday, January 16, so that they could be available to pick her up and provide more close outpatient support. Fariba is agreeable with follow up treatment at [facility] after discharge. Objective - Appearance Appearance: Obese Dysmorphic Features: No Hygiene: Normal Grooming: Fairly Well Kept - Behavior Psychomotor Activities: Abnormal-Decreased Exhibits Abnormal Movement: No - Attitude and Relatedness Attitude and Relatedness: Cooperative Eye Contact: Fair - Speech Quality: Unpressured Latencies: Normal Quantity: Appropriate - Mood Patient's Decription of Mood: "Good" - Affect Observed Affect: Fair Affect Consistent with: Euthymia - Thought Process Patient's Thought Process: Coherent Thought Content: No Passive Wish, No Suicidal Planning, No Homicidal Ideation, No Paranoid Ideation - Sensorium Experiencing Hallucinations: No, Sensorium is Clear Type of Hallucinations: Visual: No, Auditory: No, Command: No - Level of Consciousness Level of Consciousness: Alert Orientation: Yes Intact, Yes Orientated to Time, Yes Orientated to Place, Yes Orientated to Person - Impulse Control Impulse Control: Tenuous - Insight and Judgement Insight and Judgement: Fair - Group Participation Particating in Group Activities: Yes - Medication Management Medication Management Adherence: Yes Assessment - Assessment Merits Inpatient Hospitalization: Consolidate Improvements, Pending Safe DC Plan Inpatient DSM-IV Dx: Conversion DO Clinical Impression: 66 y.o. , white female with a history of bipolar disorder and multiple previous psychiatric admissions in [facility] brought to the ER by family due to intractable abdominal pain with no discernable organic cause and associated passive SI. Plan - Plan Treatment Plan: Name: FARIBA HO Birthdate: 1950 [id number] The patient appears less anxious and less somatic on oral lorazepam, however, she is declining to continue this on an outpatient basis, citing fears of dependency formation. She is also receiving her outpatient regimen of ziprasidone and duloxetine and I feel like she's benefiting from being adherent with these, which she had not been on an outpatient basis. We are targeting tomorrow (01/16) for discharge. Continued Medication Management: Continue Outpt Medication Medications: Current Medications Acetaminophen (Tylenol Tab*) 650 mg PO Q4H PRN PRN Reason: for pain; or Temp >101 F Al Hydrox/Mg Hydrox/Simethicone (Maalox Plus*) 30 ml PO Q4H PRN PRN Reason: INDIGESTION Albuterol (Ventolin Hfa Inhaler*) 2 puff INH Q6H PRN PRN Reason: WHEEZING Docusate Sodium (Colace Cap*) 100 mg PO BID PRN PRN Reason: CONSTIPATION Last Admin: 01/13/17 20:43 Dose: 100 mg Duloxetine HCl (Cymbalta Cap*) 30 mg PO DAILY [facility] Last Admin: 01/15/17 09:18 Dose: 30 mg Lorazepam (Ativan Tab(*)) 1 mg PO BID [facility] Last Admin: 01/15/17 09:18 Dose: 1 mg Metformin HCl (Glucophage*) 500 mg PO BID [facility] Last Admin: 01/15/17 09:18 Dose: 500 mg Multivitamins (Theragran Tab*) 1 tab PO DAILY [facility] Last Admin: 01/15/17 09:18 Dose: 1 tab Nicotine Polacrilex (Nicotine Gum*) 2 mg PO Q2H PRN PRN Reason: CRAVING Ziprasidone (Geodon Cap*) 80 mg PO BEDTIME [facility] Last Admin: 01/14/17 20:09 Dose: 80 mg - Discharge Plan Discharge Plan: Outpatient Follow Up Outpatient Program: [facility]
[2017-01-15] MEDS: Ziprasidone CAP* 80 MG PO SCH (20:10)
[2017-01-16 07:50] VITALS: BP 140/74
[2017-01-16] MEDS: metFORMIN* 500 MG TAB PO SCH (08:10)
[2017-01-16] MEDS: DULoxetine DR CAP* 30 MG CAP.DR PO SCH (08:11)
[2017-01-16] MEDS: LORazepam TAB(*) 1 MG PO SCH (08:11)
[2017-01-16] MEDS: Vitamin THERAPEUTIC TAB PO SCH (08:11)
--- NOTE | 2017-01-16 15:46 | DS ---
DATE OF ADMISSION: 01/08/2017. DATE OF DISCHARGE: 01/16/2017. DISCHARGE DIAGNOSES: AXIS I: Somatic symptom disorder; bipolar disorder by history; alcohol use disorder, in sustained r emission. AXIS II: Histrionic personality traits. AXIS III: Diabetes mellitus type 2, hyperlipidemia, chronic obstructive pulmonary disease, history of cholecystectomy. AXIS IV: Moderate, primary support stressors. AXIS V: At the time of admission was 45 and at the time of discharge is 60. CONDITION AT THE TIME OF DISCHARGE: Stable. The patient states that her abdominal pain is signific antly better and as a result she is no longer experiencing suicidal ideations. She has been observe d on our unit to be much more social, getting out into the milieu, going to groups, eating 100 perce nt of her meals. She is smiling with a bright affect. We have had extensive conversations with her son Russel, as well as Russel's fiance, a woman named Leah Pan, who are in support of the disch arge plan. In fact, they are coming to the hospital to pick Fariba up this afternoon. They are rallying social support around her and the patient has intact outpatient follow-up in the community, including a psychiatric prescriber and a psychotherapist, both located at [facility] in [place], [place]. The patient has a pharmacy in which we are sending her prescriptions and she does not see any barriers to following up effectively with outpatient treatment. The patient is as dann for discharge at this time and she is doing so for what seems like a reasonable rationale. She believes that she can be treated in a less restrictive setting. At this time, she has been safe on all checks and we see no justification to keep her any further on an involuntary basis. MENTAL STATUS EXAM: The patient is a slightly obese, white female with blonde hair in green scrubs, out walking to the coffee machine. She shows no evidence of abnormal movements. She makes good ey e contact. She is calm and cooperative. Speech has a normal rate, tone, and volume. Mood is euthym ic with a full affect. Thought process is linear and goal-directed. Thought content is significant for her desire to leave the hospital today. She is denying suicidal or homicidal ideations. She de nies auditory or visual hallucinations. Insight and judgment are fair given her willingness to foll ow-up with outpatient treatment. Cognitively, she is awake and alert with what would appear to be a n average intellect. It should be noted there is no evidence of any further somatic delusions at is time. DISCHARGE INSTRUCTIONS TO THE PATIENT: A. Medications: The patient is taking an Albuterol inhaler, two puffs inhaled every six hours as n eeded for wheezing; Cymbalta 30 mg p.o. daily; Colace 100 mg p.o. b.i.d.; Lorazepam 1 mg p.o. b.i.d. ; Ziprasidone 80 mg p.o. at bedtime; Metformin 500 mg p.o. b.i.d. B. Diet: She is on a diabetic diet. C. Activities: As tolerated. The patient is declining the offer of continued nicotine replacement therapy, expressing her interest in continuing to smoke cigarettes for the time being after dischar ge. There are no laboratory or diagnostic studies pending at the time of discharge. D. Follow-up care: The patient will follow-up within one week of discharge at the [facility] in [place], [place] where she sees a therapist names Namrata and [facility] Ena. In addition, she is being referred to her primary care provider in [place], [place], Dr. Villagomez. HOSPITAL COURSE - PART A: Reason for admission: The patient is a 66-year-old, , white female with a history of bipolar disorder who was recently discharged from the psychiatric unit at [facility], who presents to the emergency room, brought in by her family, seeking medical evaluation f or intractable abdominal pain. She arrived in our ER stating that her pain has been going on for ap proximately a year to a year-and-a- half, but it comes and goes every day, typically for 4 to 12 geovayn rs at a time and feels like a squeezing within her abdomen. This was medically worked up by both e ED clinician as well as the Hospitalist Service who consulted in the ED. After extensive physical examination and medical history, as well as imaging of her chest and abdomen, it was determined parmjit t there was no organic cause of her abdominal pain and that her issues were likely psychosomatic. T his, coupled with the fact that she was making statements to the effect that she could no longer carole e with the pain, as well as her documented history of prior suicide attempts, led the ED team to req uest mental health evaluation. My understanding is that we are unable to get collateral contact [facility] at the time, but that they were able to speak with her daughter -in-law who was supportive of psychiatric admission. Symptomatically, the patient denied any neurov egetative symptoms of depression; however she also denied caroline or psychosis. She was basically mos tly somatic, complaining of abdominal pain and stating that she simply could not live with this pain any further. She has no discernible plan for suicide, but states that she wished her life would en d. HOSPITAL COURSE - PART B: Psychiatric treatment rendered: The patient was admitted to the [facility] Unit where she was placed on q.15 minute checks for her own safety. We did reinitiat e her outpatient psychiatric medications, including Ziprasidone 80 mg at night and Cymbalta 30 mg da lois. I was able to speak with both her son and her son's fiance who indicated their understanding t hat the patient is often noncompliant with psychiatric medications and is similarly nonadherent with her diabetic management, often eating the wrong foods and not taking diabetic medications appropria tely. They openly wondered whether her issues were of a neuropathic pain variety, something bennett to fibromyalgia or something related to her diabetes. At any rate, both the patient and the family me mbers involved expressed frustration that the providers at [facility] were not able to come up with a more coherent diagnosis or treatment plan. The patient also demonstrated an odd flapping ana mor when she was seen in her room. It is notable that often when we entered her room she was sittin g quietly, but when she realized someone was assessing her, she started to flap her hands bilaterall y. As the hospitalization progressed, this dissipated and eventually resolved completely. From a t reatment perspective, we were curious whether perhaps this was neuropathic pain and therefore we sta rted a trial of Lyrica, initially 50 mg daily, but then bumped up to 75 mg daily. We later found ou t that she had had an unsuccessful trial of Gabapentin and at any rate the patient complained of jaw stiffness from Lyrica and this was discontinued. Her family felt that benzodiazepine therapies had shown the most promise thus far, not only in terms of reducing her anxiety and hand gestures, but a lso in reducing her somatic complaints of abdominal pain. She was agreeable to a trial of low dose Lorazepam at 1 mg p.o. b.i.d. which seemed to work quite well. Thereafter, she was much more visibl e on the unit, started coming out of her room and socializing, eating 100 percent of meals and futur e oriented, talking about returning to the community and spending more time with her son and his isauro nce. Both her son, Russel, and his fiance, Leah, were agreeable with the discharge plan. They fee l at this point that she could have her needs met back at [facility] and they are c oming this afternoon to pick her up. I will note that her diabetic management was changed by Dr. Juanita Irizarry, who was the consulting hospitalist. He took her off of her insulin secretagogues and placed her on a higher dose of Metformin at 500 mg p.o. b.i.d. Her blood sugars were greatly improv ed as the hospitalization went on and we are recommending that she continue with Metformin therapy. We are making appointments with her primary care provider who office practice is in [facility]. At this time, we feel she is safe for discharge and she is aware of her outpatient follow-up yoni ointments. We wish her the best for a safe and healthy future. [id number]/[facility] #: [id number]
== END 2017-01-16 13:45 | disposition home or self-care (01) | DRG 882 ==
LOC: ED 11:43 → BSU 01-08 17:23
PROVIDERS: ADMIT Psychiatry & Neurology Psychiatry; ATTEND Psychiatry & Neurology Psychiatry
DX: F45.1 Undifferentiated somatoform disorder (principal); J44.9 Chronic obstructive pulmonary disease, unspecified; E11.9 Type 2 diabetes mellitus without complications; F31.9 Bipolar disorder, unspecified; F10.21 Alcohol dependence, in remission; E78.5 Hyperlipidemia, unspecified; F17.210 Nicotine dependence, cigarettes, uncomplicated; Z79.84 Long term (current) use of oral hypoglycemic drugs; Z79.1 Long term (current) use of non-steroidal anti-inflammatories (NSAID); Z79.899 Other long term (current) drug therapy; Z81.8 Family history of other mental and behavioral disorders; R10.84 Generalized abdominal pain
CPT/HCPCS: 36415; 71010; 74177; 80053; 80061; 80307; 80320; 80329; 81003; 81015; 82150; 82550; 83036; 83605; 83690; 83735; 84443; 84484; 84702; 85025; 85610; 86140; 87086; 93005; 99222; 99231; 99238; A9270-GY; G0480; J2060; J2270; Q9967